=== PATIENT | male | born 1990 | race Caucasian/White ===

== ENCOUNTER 2020-04-09 16:46 | Emergency (ER) | payer MEDICARE, MEDICAID, SELFPAY ==
[2020-04-09 16:50] VITALS: BP 140/80; PULSE 108; RESP 20; TEMP 36.6; O2SAT 97
--- NOTE | 2020-04-09 16:56 | W.ED.GENAD ---
Discharge Plan Disposition Patient Disposition: [facility] Condition: Poor Discharge Details Chief Complaint: Abd Prob Clinical Impression: Acute cholangitis Primary Care Provider: Bradley Ulloa ED Provider: Ernestina Durbin Home Meds and New Rx's Prescriptions: No Action ibuprofen 600 MG tablet 600 mg PO TID Qty: 30 RF: 0 Medical Decision Making Patient is a pleasant 29-year-old male, accompanied by his mother, with chief complaint of right-sided abdominal pain. Patient has history of autism and mother is of comfort and aids in communication. Per their report, patient began having right-sided abdominal pain 2 weeks ago prompted by fatty meal intake. He reports severe pain after these meals. Mother has been treating for gastritis with minimal improvement. They report that last , the patient had one episode of emesis but patient states that this is prompted severe pain rather than abdominal upset. They deny any fevers or chills. Denies any chest pain or shortness of breath. He denies any change in bowel habits, last bowel movement was 2 hours prior to arrival. Denies any blood in stool. No hematemesis. Has had what sounds to be a superficial cyst removed from the abdominal wall but no further abdominal surgeries. He denies any testicular pain. No dysuria or hematuria. States the pain does radiate towards the right flank but is not back. States that 1 hour prior to arrival he had an egg salad sandwich prior to recurrence of his severe pain and mother to bring him in for evaluation. On exam, patient appears uncomfortable. He is overweight. Lungs are clear, normal cardiac exam. No CVA tenderness. Abdomen significant for pain in the epigastric and right upper quadrant region with positive Mata sign. Patient does have positive rebound tenderness. He does have pain as well in the right lower quadrant but this does not seem to be as severe, no pain over McBurney's point. Primarily concern for gallbladder disease. Also considered gastritis or ulcer, atypical presentation of appendicitis, pyelonephritis versus other. Plan for CT imaging and laboratory evaluation. Patient is returned from CT. Has 3 areas of itching that is concerning for hives. No shortness of breath or difficulty breathing. Will give IV benadryl and monitor closely. FINDINGS: Heart: The visualized portions of the heart and pericardium are within normal limits. Lungs: The visualized lung bases are within normal limits. There are slight dependent atelectatic changes at the lung bases. Liver: The liver is within normal limits. Gallbladder and bile ducts: There is intrahepatic and extrahepatic biliary ductal dilatation. The common bile duct is dilated into the head of the pancreas. It measured approximately a cm. The gallbladder is somewhat distended. There is thickening of the gallbladder wall. A tiny amount of pericholecystic fluid is not totally excluded. Pancreas: The pancreas is within normal limits. Spleen: The spleen is within normal limits. There is a splenule. Adrenals: The adrenal glands are unremarkable. Kidneys and ureters: The kidneys are within normal limits. Stomach and bowel: There is a somewhat distended loop of jejunum. Appendix: The appendix is visualized and is within normal limits. Intraperitoneal space: There is a small amount of free fluid in the pelvis. Clinical correlation isrecommended Vasculature: Unremarkable. No abdominal aortic aneurysm. Lymph nodes: No enlarged lymph nodes. Bladder: The urinary bladder is unremarkable. Reproductive: The prostate and seminal vesicles are within normal limits. Bones/joints: There are slight degenerative changes of both hips. There are slight degenerative changes of the lower thoracic spine . Soft tissues: Unremarkable. IMPRESSION: 1. Slightly distended gallbladder. The gallbladder wall is thickened. A tiny amount of pericholecystic fluid is not totally excluded. These findings could be re-evaluated with an abdominal ultrasound. 2. There is intrahepatic and extrahepatic biliary ductal dilatation. 3. Small amount of free fluid in the pelvis. Clinical correlation is recommended. Somewhat distended loop of jejunum. Clinical correlation is recommended. Labs reviewed. No leukocytosis. Patient does have a bump in his bilirubin to 7.2, AST 183, ALT 337, alk phos 200. Patient is typically within normal limits. Lipase is normal. Urine is pending. Patient continues to be uncomfortable, we will augment the morphine with Dilaudid. Consulted with general surgery regarding concern for ascending cholangitis with CT and laboratory findings. She advised patient will likely need ERCP and she be sent to [facility]. Contacted [facility] transfer center. They asked that I call back in 15 minutes. Discussed results with patient and mother. While waiting for [facility], plan start patient on Zosyn. He has been made n.p.o. while here but did eat 1 hour prior to arrival. Consult requested through [facility]. Images pushed to [facility] attn Dr Bazzi. GI advised patient appropriate for surgery tomorrow. Spoke with hospital medicine, Dr. Warren who is the accepting physician. Patient, mother and I discussed pathology and transfer at length. They voice udnerstanding and wish to proceed. Patient transferred to [facility], stable and comfortable for ascending cholangitis. HPI General Mode of arrival: ambulatory. Date/Time Provider Initiated Documentation: 04/09/20 16:56. Limitations to Documentation: no limitations. Information obtained by: patient, family (patient is autistic, mother helping with clarification and history) and RN notes reviewed. History of Present Illness 29 year old M presents to the emergency department with the chief complaint of right sided abdominal pain, described as severe, with intensity rated at 10. Quality is described as sharp, and is localized to the abdomen. Patient reports radiation to back (toward right flank). Patient started experiencing this week(s) (2) and it has been intermittent (worse after eating, constant since eating 1 hour ago). No relieving factors improve symptom(s), Eating worsens symptoms . Patient notes loss of appetite and nausea/vomiting (states 5 days ago severe pain caused emesis); denies chest pain, cough, fever/chills, rash, shortness of breath and weakness. Patient did receive the following treatments prior to arrival, other Related Data Home Medications Medication Instructions Recorded Confirmed ibuprofen 600 mg PO TID #30 tab 08/07/15 04/09/20 Previous Rx's Medication Instructions Recorded ibuprofen 600 mg PO TID #30 tab 08/07/15 Allergies Allergy/AdvReac Type Severity Reaction Status Date / Time No Known Allergies Allergy Unverified 04/09/20 16:55 Review of Systems Constitutional Constitutional: Reports as per HPI, Denies chills, Denies fatigue, Denies fever(s) and Denies headache(s) ENT Ears, Nose, Mouth, and Throat: Denies headache(s) Cardiovascular Cardiovascular: Reports as per HPI, Denies chest pain and Denies dyspnea Respiratory Respiratory: Reports as per HPI, Denies cough and Denies dyspnea Gastrointestinal Gastrointestinal: Reports as per HPI, Reports abdominal pain, Denies change in bowel habits (normal BM 2 hours prior to arrifval), Reports nausea (none at this time) and Reports vomiting (1 week ago, associated with severe pain) Genitourinary Genitourinary: Denies system reviewed and no additional complaints, except as documented (patient denies any change in urinary habits) Musculoskeletal Musculoskeletal: Reports as per HPI and Denies back pain Integumentary/Breasts Skin/Breast: Reports as per HPI and Denies rash Neurologic Neurologic: Reports as per HPI and Denies headache(s) Endocrine Endocrine: Denies fatigue [facility] Social History Smoking/Tobacco Use Status: Never Alcohol Intake: never Drug use: Never Substance use type: does not use Do you feel safe at home: Yes Do you feel safe in your relationship?: Yes Exam Const General: cooperative, uncomfortable, no acute distress and well developed Nutritional Appearance: well nourished and obese morbidly obese Orientation: alert, awake and oriented x3 HENMT Head: normal to inspection Mouth: moist mucous membranes Resp Effort & Inspection: normal respiratory effort, able to speak in complete sentences and no respiratory distress Auscultation: clear to auscultation bilaterally, no rales, no rhonchi and no wheezes Cardio Rate: regular rate Rhythm: regular rhythm Heart Sounds: S1 normal and S2 normal GI Inspection: no edema, non-distended, obesity, no visible herniation and no visible pulsation Palpation: soft, no hepatosplenomegaly, not firm, guarding in the RUQ, no hernias, no masses, not rigid, tender in the RLQ, in the RUQ, Mata's sign positive and with rebound tenderness; not at McBurney's point and No ascites Percussion: normal to percussion Auscultation: normal bowel sounds Back/Spine/Pelvis Back: no CVA tenderness Skin General skin exam: no rashes or lesions noted Trauma: no lacerations or abrasions Neuro General: patient alert and patient awake Cognition: normal cognition Speech: speech normal Gait: gait abnormal (unable to ambulate since fall) Psych Appearance: grossly normal and well kempt Mental Status: mental status grossly normal Speech and Movement: speech and movement normal
--- NOTE | 2020-04-09 17:00 | DI.CT_ITS ---
EXAM: CT ABDOMEN PELVIS W CLINICAL HISTORY: RUQ and right flank pain, worse after eating TECHNIQUE: Imaging Protocol: Axial computed tomography images with coronal and sagittal reformatted images were created and reviewed CONTRAST MATERIAL: Intravenous: Omnipaque 350 Contrast volume:100 mL Oral: No COMPARISON: CT ABD PELVIS WITH CONTRAST from 05/28/2011 FINDINGS: There is patient motion artifact. ABDOMEN: Lung Bases: There is dependent atelectasis in the lung bases bilaterally. Liver: Normal density. No measurable mass. Portal, Superior Mesenteric, and Splenic Veins: Unremarkable. Gallbladder and Biliary Tract: The gallbladder is mildly distended. The wall appears mildly thickene d. There is mild intra and extrahepatic biliary ductal dilatation. There does appear to be a small amount of pericholecystic fluid. Pancreas: Normal density, no abnormal calcifications or inflammatory process. Spleen: Normal. Adrenals: No masses seen. Kidneys: Normal size, contour and axis. No radiodense stones or obstructive uropathy. No masses seen. Abdominal Aorta: Abdominal portion non-dilated. Bowel: No obstruction or bowel wall thickening. Appendix is unremarkable. Nonspecific mild dilatation of a loop of jejunum. Peritoneal Cavity: Small amount of pelvic ascites. Lymph Nodes: Within normal limits. Bones: There is L5 spondylolysis and grade 1 spondylolisthesis of L5 on S1. Soft Tissues: Unremarkable. PELVIS: Bladder: Symmetric distention, no gross wall thickening. Reproductive Organs: Unremarkable as visualized. Lymph Nodes: Within normal limits. Bones: See above. IMPRESSION: 1. Gallbladder which is slightly distended with a mildly thickened gallbladder wall. Question of per icholecystic fluid. Acute cholecystitis cannot be excluded. Gallbladder ultrasound may be considere d for further evaluation. 2. Mild intrahepatic and extrahepatic biliary ductal dilatation. RADIATION DOSE DELIVERED: 1,596.31mGy.cm Total DLP DATA REPOSITORY: All CT scans at this facility are submitted to the National Radiology Data Registry (NRDR) Dose Index Registry (DIR) with the [employer] (A[employer]). RADIATION OPTIMIZATION: All CT scans at this facility use at least one of these dose optimization te chniques: automated exposure control; mA and/or kV adjustment per patient size (includes targeted exa ms where dose is matched to clinical indication); or iterative reconstruction.
[2020-04-09] MEDS: Lactated Ringers 1,000 ML 1000 ML IV (17:31)
[2020-04-09] MEDS: MORPHine 10 MG/ML VIAL 2 MG IVP (17:32)
[2020-04-09 17:42] LABS: Abs Immature Grans 0.01 k/cumm (0.0-0.09); Absolute Basophil Count 0.03 k/cumm (0.0-0.2); Absolute Eosinophil Count 0.16 k/cumm (0.0-0.7); Absolute Lymphocyte Count 1.17 k/cumm (1.2-3.4); Absolute Neutrophil Count 7.84 k/cumm (1.2-6.7); Basophils % 0.3; Eosinophils % 1.6; HCT 43.7 % (40.0-50.0); HGB 15.5 g/dL (13.5-17.5); Immature Grans % 0.1 %; Mean Corp. HGB Concentration 35.5 g/dL (32.0-36.0); Mean Corpuscular Hemoglobin 30.1 pg (27.0-33.0); Mean Corpuscular Volume 84.9 fL (80-95); Mean Platelet Volume 9.6 fL (8.0-11.0); Monocytes % 5.1; Neutrophils % 80.9; Platelet Count 272 x1000/uL (130-400); RBC 5.15 m/cumm (4.50-6.00); RBC Distribution Width 12.7 % (11.8-14.1); White Blood Cell Count 9.71 k/cumm (4.4-10.8)
[2020-04-09 17:51] LABS: ALT 337 U/L (16-63); AST 183 U/L (15-37); Alkaline Phosphatase 200 U/L (46-116); Anion Gap 9.7 mmol/L (3-11); BUN 12 mg/dL (7-18); CO2 27.3 mmol/L (21.0-32.0); CREATININE 0.92 mg/dL (0.70-1.30); Calcium 9.6 mg/dL (8.5-10.1); Chloride 99 mmol/L (98-107); Glucose 82 mg/dL (74-106); Lipase 61 U/L (73-393); Potassium 3.6 mmol/L (3.5-5.1); Sodium 136 mmol/L (136-145); Total Protein 7.9 g/dL (6.4-8.2)
[2020-04-09] MEDS: Normal Saline - Diluent 50 ML VIAL IV (17:53)
[2020-04-09] MEDS: Omnipaque 350 MG/ML 100 ML BTL IJ (17:53)
[2020-04-09 17:54] LABS: Bilirubin, Total 7.2 mg/dL (0.2-1.0)
--- NOTE | 2020-04-09 18:10 | DI.VRAD_ITS ---
PROCEDURE INFORMATION: Exam: CT Abdomen And Pelvis With Contrast Exam date and time: 04/09/2020 5:43 PM Age: 29 years old Clinical indication: Abdominal pain; Localized; Right upper quadrant (ruq); Patient HX: Ruq and right flank pain, worse after eating TECHNIQUE: Imaging protocol: Computed tomography of the abdomen and pelvis with intravenous contrast. COMPARISON: No relevant prior studies available. FINDINGS: Heart: The visualized portions of the heart and pericardium are within normal limits. Lungs: The visualized lung bases are within normal limits. There are slight dependent atelectatic changes at the lung bases. Liver: The liver is within normal limits. Gallbladder and bile ducts: There is intrahepatic and extrahepatic biliary ductal dilatation. The common bile duct is dilated into the head of the pancreas. It measured approximately a cm. The gallbladder is somewhat distended. There is thickening of the gallbladder wall. A tiny amount of pericholecystic fluid is not totally excluded. Pancreas: The pancreas is within normal limits. Spleen: The spleen is within normal limits. There is a splenule. Adrenals: The adrenal glands are unremarkable. Kidneys and ureters: The kidneys are within normal limits. Stomach and bowel: There is a somewhat distended loop of jejunum. Appendix: The appendix is visualized and is within normal limits. Intraperitoneal space: There is a small amount of free fluid in the pelvis. Clinical correlation is recommended. Vasculature: Unremarkable. No abdominal aortic aneurysm. Lymph nodes: No enlarged lymph nodes. Bladder: The urinary bladder is unremarkable. Reproductive: The prostate and seminal vesicles are within normal limits. Bones/joints: There are slight degenerative changes of both hips. There are slight degenerative changes of the lower thoracic spine . Soft tissues: Unremarkable. IMPRESSION: 1. Slightly distended gallbladder. The gallbladder wall is thickened. A tiny amount of pericholecystic fluid is not totally excluded. These findings could be re-evaluated with an abdominal ultrasound. 2. There is intrahepatic and extrahepatic biliary ductal dilatation. 3. Small amount of free fluid in the pelvis. Clinical correlation is recommended. Somewhat distended loop of jejunum. Clinical correlation is recommended. Dictated and Authenticated by: Austin Green MD. Ordering:MATHEUS Do MD
[2020-04-09] MEDS: diphenhydrAMINE 50 MG/ML VIAL IVP (18:27)
[2020-04-09] MEDS: Normal Saline Flush 10 ML SYR IVP (18:28)
[2020-04-09] MEDS: HYDROmorphone 2 MG/ML VIAL 1 MG IVP ×2 (18:28→22:24)
[2020-04-09 18:48] LABS: Prothrombin Time 10.1 sec (9.3-11.0)
[2020-04-09] MEDS: PIPERACILLIN/TAZO 3.375 GM in Normal Saline 50 ML IVPB (19:11)
[2020-04-09 19:16] VITALS: BP 111/56; PULSE 76; RESP 18; TEMP 36.8; O2SAT 97
[2020-04-09] MEDS: Lactated Ringers 1,000 ML 200 ML IV (19:41)
[2020-04-09 21:40] VITALS: BP 101/62; PULSE 74; RESP 16; TEMP 36.6; O2SAT 100
== END 2020-04-09 22:20 | disposition short-term general hospital (02) ==
PROVIDERS: Emergency Provider Physician Assistant; PCP Pediatrics
DX: K83.09 Other cholangitis (principal); R10.821 Right upper quadrant rebound abdominal tenderness; F84.0 Autistic disorder
CPT/HCPCS: 36415; 80053; 83690; 96361; 96365; 96375; 96376; 99285; 74177; 81003; 85025; 85610; 85730; 99284; J1200; J2270; J2543; J3490

== ENCOUNTER 2021-01-22 17:38 | Outpatient (REF) | payer MEDICARE, MEDICAID, SELFPAY ==
[2021-01-22 14:18] LABS: Calculated LDL 109 mg/dL (<100); Cholesterol 185 mg/dL (<200); Glucose 80 mg/dL (74-106); HDL Cholesterol 49 mg/dL (40-60); Triglyceride 135 mg/dL (<150)
== END 2021-01-22 17:39 | disposition home or self-care (01) ==
LOC: NCHCN 17:38
PROVIDERS: Visit Provider Family Medicine
DX: E66.9 Obesity, unspecified (principal); Z13.1 Encounter for screening for diabetes mellitus
CPT/HCPCS: 80061; 82947

== ENCOUNTER 2021-01-25 04:32 | Outpatient (CLI) | payer OTHER, SELFPAY ==
--- NOTE | 2021-01-25 07:00 | DI.RAD_ITS ---
EXAM: XR HAND LT COMPLETE CLINICAL HISTORY: Question of OA/RA or other pathology,BILTA HAND AND WRIST PAIN,M25.532,M25.. TECHNIQUE: 2D digital imaging was performed. COMPARISON: No exams were available for comparison FINDINGS: BONES: No acute fracture is present. No bony destructive lesion is seen. JOINTS: No dislocation present. The joint spaces are well maintained. No erosions, soft tissue calci fications or joint space narrowing is present. SOFT TISSUE: Normal. IMPRESSION: Unremarkable radiographs of the left hand. DATA REPOSITORY: RADIATION DOSE DELIVERED:
--- NOTE | 2021-01-25 07:09 | DI.RAD_ITS ---
EXAM: XR HAND RT COMPLETE CLINICAL HISTORY: Question of OA/RA or other pathology,BILAT WRIST AND HAND PAIN. TECHNIQUE: 2D digital imaging was performed. COMPARISON: No exams were available for comparison FINDINGS: BONES: No acute fracture is present. No bony destructive lesion is seen. JOINTS: No dislocation present. No erosions, joint space narrowing or soft tissue calcifications are present. SOFT TISSUE: Normal. IMPRESSION: Unremarkable radiographs of the right hand. DATA REPOSITORY: RADIATION DOSE DELIVERED:
== END 2021-01-25 04:52 ==
PROVIDERS: PCP Family Medicine; Visit Provider Nurse Practitioner Family
DX: M25.531 Pain in right wrist (principal); M25.532 Pain in left wrist; M79.641 Pain in right hand; M79.642 Pain in left hand
CPT/HCPCS: 73130

== ENCOUNTER 2021-01-28 04:21 | Outpatient (CLI) | payer OTHER, SELFPAY ==
[2021-01-28 12:10] LABS: Abs Immature Grans 0.03 10^3/uL (0.0-0.06); Absolute Basophil Count 0.04 10^3/uL (0.0-0.2); Absolute Monocyte Count 0.41 10^3/uL (0.1-0.8); Absolute Neutrophil Count 5.27 10^3/uL (1.2-6.7); Basophils % 0.5; Eosinophils % 2.5; HCT 43.6 % (40.0-50.0); HGB 14.8 g/dL (13.5-17.5); Immature Grans % 0.4; Lymphocytes % 24.2; MCH 29.7 pg (27.0-33.0); MCHC 33.9 % (32.0-36.0); MCV 87.4 fL (80-95); MPV 9.4 fL (8.0-11.0); Monocytes % 5.2; Neutrophils % 67.2; Nucleated RBC 0 %; Platelet Count 251 10^3/uL (130-400); RBC 4.99 10^6/uL (4.36-5.78); RDW 12.6 % (11.8-14.1); RDW-SD 40.1 fL; WBC 7.85 10^3/uL (4.4-10.8)
[2021-01-28 13:48] LABS: C-Reactive Protein 0.29 mg/dL (0.0-0.3); Uric Acid 5.9 mg/dL (3.5-7.2)
[2021-01-28 16:25] LABS: Rheumatoid Factor <8.6 IU/mL (<12.0)
[2021-01-28 16:54] LABS: ESR 12 mm/hr (<or=15)
[2021-01-29 15:17] LABS: ANA Interpretation Negative (Negative)
[2021-02-04 09:49] LABS: Cyclic Citrullinated Peptide <2.5 U/mL (<5.0)
== END 2021-01-28 04:22 | disposition home or self-care (01) ==
LOC: LBO 04:21
PROVIDERS: PCP Family Medicine; Visit Provider Nurse Practitioner Family
DX: M25.531 Pain in right wrist (principal); M25.532 Pain in left wrist; M79.641 Pain in right hand; M79.642 Pain in left hand
CPT/HCPCS: 36415; 85652; 86200; 84550; 85025; 86038; 86140; 86431

== ENCOUNTER 2021-03-04 11:44 | Outpatient (CLI) | payer OTHER, SELFPAY ==
--- NOTE | 2021-03-04 11:00 | DI.RAD_ITS ---
EXAM: XR CERVICAL SPINE COMP 4-5V CLINICAL HISTORY: cervical radiculopathy?. TECHNIQUE: 2D digital imaging was performed. COMPARISON: No exams were available for comparison FINDINGS: There is no evidence of fracture or listhesis nor offset of the spinal laminar line. Disc spaces exh ibit normal height at each level. No foraminal narrowing seen on the oblique views. No cervical rib s. No osseous lesions. Bone density is age-appropriate. IMPRESSION: No significant radiographic findings. DATA REPOSITORY: RADIATION DOSE DELIVERED:
== END 2021-03-04 11:45 | disposition home or self-care (01) ==
LOC: DIORS 11:45
PROVIDERS: PCP Family Medicine; Referring Provider Family Medicine; Visit Provider Physician Assistant Surgical
DX: M54.12 Radiculopathy, cervical region (principal); M25.531 Pain in right wrist; M25.532 Pain in left wrist; M79.641 Pain in right hand; M79.642 Pain in left hand
CPT/HCPCS: 72050

== ENCOUNTER 2021-05-15 08:05 | Day surgery (SDC) | payer OTHER, SELFPAY ==
--- NOTE | 2021-05-15 07:26 | W.PM.DSUDISC ---
Documented by User: RUBÉN Jara 05/15/21 07:28 Discharge Plan Disposition Patient Disposition: HOME Condition: Good Discharge Details Reason For Visit: Right ECTR Attending Provider: Michael Henderson Primary Care Provider: Sherwin Gallegos Home Meds and New Rx's Prescriptions: New acetaminophen 500 mg tablet 500 mg PO Q6H PRN PRN (Reason: pain) Qty: 40 RF: 3 hydrocodone-acetaminophen 5-325 mg tablet 1 tab PO Q6H PRN (Reason: pain) Qty: 6 RF: 0 Continued ibuprofen 600 MG tablet 600 mg PO TID Qty: 30 RF: 0 Discharge Instructions Additional Instructions: Cubital Tunnel Decompression Discharge Instructions Activity: You should stay in the sling for the first 2 weeks. You may come out of the sling for gentle motion and hygiene but should largely remain in the sling to allow the incision site to heal. Gentle motion of the elbow, hand, wrist, and fingers is okay and encouraged after the first few days, but no repetitive activites nor heavy lifting. You may apply ice. Medications: - You should take Tylenol and Ibuprofen around the clock. - You have been prescribed Hydrocodone for breakthrough pain. Dressings: - The initial surgical dressing should stay in place for 3 days. It may then be removed and kept clean and dry. You should cover with a light gauze dressing. - You may shower after 3 days and get the wound wet. Follow-up: 10 days Stand Alone Forms: Anesthesia Discharge Inst. Referrals: Michael Henderson MD [ [facility] STAFF PHYSICIAN] - 05/24/21 11:00 am () Activity:: Activity as Tolerated Remove Dressings/Wound Care:: 72 hours Shower/Bathe:: 72 hours Diet:: As Tolerated Discharge Orders Discharge Orders: Discharge Order (Routine); Ordered 05/15/21 Ordered By: Ellen Pritchard Discharge Data Discharge Date/Time-TO BE ENTERED AT DEPARTURE: 05/15/21 11:55 DS: Diagnosis Discharge Diagnosis (1) Right carpal tunnel syndrome: Status: Suspected Documented by User: Michael Henderson MD 05/15/21 12:14 Discharge Plan Disposition Patient Disposition: HOME Condition: Good Discharge Details Reason For Visit: Right ECTR Attending Provider: Michael Henderson Primary Care Provider: Sherwin Gallegos Home Meds and New Rx's Prescriptions: New acetaminophen 500 mg tablet 500 mg PO Q6H PRN PRN (Reason: pain) Qty: 40 RF: 3 hydrocodone-acetaminophen 5-325 mg tablet 1 tab PO Q6H PRN (Reason: pain) Qty: 6 RF: 0 Continued ibuprofen 600 MG tablet 600 mg PO TID Qty: 30 RF: 0 Discharge Instructions Additional Instructions: Cubital Tunnel Decompression Discharge Instructions Activity: You should stay in the sling for the first 2 weeks. You may come out of the sling for gentle motion and hygiene but should largely remain in the sling to allow the incision site to heal. Gentle motion of the elbow, hand, wrist, and fingers is okay and encouraged after the first few days, but no repetitive activites nor heavy lifting. You may apply ice. Medications: - You should take Tylenol and Ibuprofen around the clock. - You have been prescribed Hydrocodone for breakthrough pain. Dressings: - The initial surgical dressing should stay in place for 3 days. It may then be removed and kept clean and dry. You should cover with a light gauze dressing. - You may shower after 3 days and get the wound wet. Follow-up: 10 days Stand Alone Forms: Anesthesia Discharge Inst. Referrals: Michael Henderson MD [ [facility] STAFF PHYSICIAN] - 05/24/21 11:00 am () Activity:: Activity as Tolerated Remove Dressings/Wound Care:: 72 hours Shower/Bathe:: 72 hours Diet:: As Tolerated Discharge Orders Discharge Orders: Discharge Order (Routine); Ordered 05/15/21 Ordered By: Ellen Pritchard Discharge Data Discharge Date/Time-TO BE ENTERED AT DEPARTURE: 05/15/21 11:55
[2021-05-15 08:26] VITALS: BP 104/73; PULSE 62; RESP 18; TEMP 36.8; O2SAT 97
[2021-05-15] MEDS: Lactated Ringers 1,000 ML 80 ML IV (08:50)
--- NOTE | 2021-05-15 08:52 | W.ANESPRE ---
General Info Date of Service Date Performed: 05/15/21 Height: 5 ft 10 in Weight: 119.9 kg Body Mass Index (BMI): 37.9 Surgical Procedure: Operation Date: 05/15/21 09:55 Proposed Procedures Side Surgeon p Wrist ECTR Right Michael Henderson MD Meds Allergies and Home Medications Allergies Allergy/AdvReac Type Severity Reaction Status Date / Time No Known Allergies Allergy Verified 05/15/21 08:23 Home Medication Medication Instructions Recorded ibuprofen 600 mg PO TID #30 tab 08/07/15 Current Visit Medications: Current Medications Generic Name Dose Route Start Last Admin Trade Name Freq PRN Reason Stop Dose Admin Acetaminophen 650 mg 05/15/21 07:25 Acetaminophen 325 Mg Tab PO Q4H PRN PRN Hydrocodone Bitart/Acetaminophen 0 tab 05/15/21 07:25 Hydrocodone 5/Acetaminophen 325 Tab PO Q3H PRN PRN Pain Ringer's Solution 1,000 mls @ 80 mls/hr 05/15/21 06:00 IV 06/13/21 23:59 INFUSION AL Cefazolin Sodium 3,000 mg/ 100 mls @ 200 mls/hr 05/15/21 06:00 Sodium Chloride IVPB 05/15/21 16:00 PREOP AL Ondansetron HCl 4 mg/ Sodium 52 mls @ 200 mls/hr 05/15/21 07:25 Chloride IVPB Q6H PRN PRN IV Miscellaneous Supplies 1 each 05/15/21 06:00 Iv Access IV 06/13/21 23:59 DIRECTED AL Sodium Chloride 0 ml 05/15/21 06:00 Normal Saline Flush 10 Ml Syr IV 06/13/21 23:59 PRN PRN Sodium Chloride 0 ml 05/15/21 06:00 Normal Saline 10 Ml Vial IJ 06/13/21 23:59 DIRECTED PRN Sterile Water 0 ml 05/15/21 06:00 Water,Injection,Sterile 10 Ml Vial IJ 06/13/21 23:59 DIRECTED PRN PFSH Active Problems Active Problems: Problem Status Onset Code Bilateral wrist pain M25.531, M25.532 Autism F84.0 Bilateral hand pain M79.641, M79.642 SLAP lesion of right shoulder S43.431A Tendinitis of long head of biceps brachii of right shoulder M75.21 Internal derangement of right shoulder M24.811 Weakness of both upper extremities R29.898 Medical History Medical History (Updated 05/15/21 @ 08:22 by Jillian Hartmann) Hx of abdominal abscess umbilical Left carpal tunnel syndrome Right carpal tunnel syndrome Surgical History Surgical History (Updated 05/15/21 @ 08:22 by Jillian Hartmann) Hx of adenoidectomy Hx of cholecystectomy Hx of tonsillectomy Tobacco Smoking/Tobacco Use Status: Never Alcohol Alcohol Intake: never Substance Use Substance use: Never Substance use type: does not use Vital Signs and Lab Results Vital Signs Most Recent Vital Signs in EMR: Most Recent Vital Signs Temp Pulse Resp BP Pulse Ox 36.8 C 62 18 104/73 97 05/15/21 08:26 05/15/21 08:26 05/15/21 08:26 05/15/21 08:26 05/15/21 08:26 Lab Results Blood Type / Crossmatch: No Data to Display Complete Blood Count: No Data to Display Complete Metabolic Panel: No Data to Display Liver Function Panel: No Data to Display Coagulation Panel: No Data to Display Cardiac Panel: No Data to Display Arterial Blood Gas: No Data to Display Venous Blood Gas: No Data to Display Pancreas Panel: No Data to Display Thyroid Panel: No Data to Display Infectious Disease: No Data to Display Blood Cultures: No Data to Display Toxicology Panel: No Data to Display Anesthesia Assessment and Plan Anesthesia History Personal History: No History of Anesthesia Complications Family History: No Family History of Anesthesia Complications Exercise Tolerance Exercise Tolerance: Metabolic Equivalents>4 Pertinent Negatives Pertinent Negatives: No Symptoms of GERD, No Major Cardiovascular Symptoms or Complaints, No Major Pulmonary Symptoms or Complaints and No History of CVA/TIA Cardiac & Pulmonary Exam Cardiac Exam: Normal S1/S2 Heart Sounds Pulmonary Exam: Clear Bilateral Breath Sounds Airway Exam Known Difficult Airway: No Mallampati Class: 2 Mouth Opening: Normal (> 3cm) Thyromental Distance: Greater than 3 cm Facial Hair: Full Akers Neck Range of Motion: Full ROM Neck Circumference: Thick Teeth Condition: Normal Dentition ASA Classification ASA Score: ASA 2 Emergency Case?: No NPO Status NPO Status: NPO Clears >2 hours, Solids >8 hours Anesthesia Plan Resuscitation Status: Full Code Anesthesia Technique: General Anesthesia Airway Planned: Natural Airway Monitors Used: Standard Monitors
[2021-05-15 08:54] VITALS: BMI 37.9
[2021-05-15] MEDS: ceFAZolin 3,000 MG in Normal Saline 100 ML 200 MG IVPB (09:10)
[2021-05-15] MEDS: Sodium Bicarbonate 50 MEQ/50 ML VIAL (09:16)
[2021-05-15 09:39] VITALS: BP 96/62; PULSE 63; RESP 15; TEMP 36.4; O2SAT 97
--- NOTE | 2021-05-15 09:42 | W.ANESPOSTOP ---
Postoperative Evaluation Date, Time and Location Date Performed: 05/15/21 Time Performed: 09:42 Patient Location: Day Surgery Unit Vital Signs Most Recent Imported Vital Signs: Most Recent Vital Signs Temp Pulse Resp BP Pulse Ox 36.8 C 62 18 104/73 97 05/15/21 08:26 05/15/21 08:26 05/15/21 08:26 05/15/21 08:26 05/15/21 08:26 Most Recent Manually Entered Vital Signs: Adult Blood Pressure: 96/62 Heart Rate: 62 Respirations: 10 Oxygen Saturation (%): 96 Temperature (C): 36.6 C Pain Score (0-10 Scale): 0 Pain Score Most Recent Pain Score: Most Recent Pain Score Pain Level 0 05/15/21 08:26 Assessment Mental Status: Awake (Alert & Oriented to Patient Baseline) Airway and Respiratory Function: Patent airway with normal (patient baseline) respiratory exam Cardiovascular Function: Hemodynamically Stable Hydration Status: Adequately Hydrated Nausea & Vomiting: No Nausea or Vomiting Pain: Pt. Denies Any Pain Peripheral Nerve Block: Patient did not receive a nerve block
[2021-05-15 09:43] VITALS: BP 96/62; PULSE 62; RESP 10; TEMPC 36.6; O2SAT 96
[2021-05-15 10:10] VITALS: BP 106/75; PULSE 60; RESP 17; TEMP 36.8; O2SAT 96
--- NOTE | 2021-05-15 10:41 | ROE_ITS ---
Date of service: 05/15/21 Time of Service: 09:58 Operative Note Operative Note DATE OF PROCEDURE: 05/15/21 PRE-OP DIAGNOSIS: Right Carpal Tunnel Syndrome POST-OP DIAGNOSIS: same PROCEDURE: Right Endoscopic Carpal Tunnel Release SURGEON: Michael Henderson ANESTHESIA TYPE: General:No Airway Refer to Anesthesia Record ESTIMATED BLOOD LOSS: 0 PATHOLOGY: none sent TOURNIQUET TIME: 6 COMPLICATIONS: None Patient was transported to: same day Patient's condition: stable Indications: I have seen Josue in clinic for symptoms of carpal tunnel syndrome. The numbness, tingling, and pain limited function. Clinical exam findings suggested the diagnosis of carpal tunnel syndrome. Nonoperative measures such as bracing, time, activity modifications had been tried but disability and pain persisted. His constellation of symptoms were difficult to attribute to any one pathology but the carpal tunnel seemed to be responsible fo r a large portion of the symptoms, so I offered a carpal tunnel release. I discussed carpal tunnel release with the patient. I reviewed the risks of the procedure to include, but not limited to, bleeding, infection, pain, stiffness, incomplete release, damage to nerves or vessels, persistent numbness, recurrence. Despite these risks, Josue elected to proceed. Findings: There was tightened carpal tunnel. This was dilated and released successfully with the endoscopic with increased space within the tunnel. The volar fascia was thick and had two layers. The antebrachial fascia was released proximally freeing the median nerve at the wrist. Procedure Description: Josue was greeted in the preoperative holding area where the correct side was identified and marked. The consent was reviewed with the patient and signed. The history and physical was updated. All questions were answered. He was taken back to the operating room. The patient was placed into the supine position on the operating room table with the right arm on an arm board. A nonsterile tourniquet was placed high onto the arm. All bony prominences were well padded. Prophylactic antibiotics in the form of Cefazolin were administered. The right arm was then prepped with Chloraprep and draped in a standard fashion with stockinette and extremity drape. A timeout to confirm correct identity, side and site, procedure, allergies, anesthesia, and medical concerns was performed. The surgical site was marked in the volar wrist creases in line with the radial border of the fourth ray. This area was anesthetized with approximately 6cc of 1% Lidocaine. The limb was then exsanguinated with an Esmarch. The skin was i ncised with a 15 blade, approximately 1cm. The skin only was cut and the deeper tissue was dissected bluntly with a tenotomy scissor, avoiding passing nerve and venous structures. The fascia was penetrated and opened bluntly. This volar fascia appeared to have two layers to it, with the second layer quite deep. Once this was opened the normal volara contents were seen. Then, a two-prong skin hook was placed under this proximal fascial edge. A series of hamate finders were used to identify and dilate the carpal tunnel. Synovial elevator was used to free synovial attachments to the underside of the transverse carpal ligament. My thumb was kept in the palm to ismael the distal extent of the carpal tunnel and correctly position the hand. The Microaire endoscope was inserted without difficulty and without resistance. Excellent visualization showed horizontally running fibers of the transverse carpal ligament (TCL). The distal extent of the TCL was visualized and the end of the scope palpated with the thumb. The blade was elevated and withdrawn from distal to proximal. The TCL was split into two flaps. The endoscope was reinserted to confirm complete release and any remnant ligament was incised. The scope was withdrawn and the proximal aspect of the carpal tunnel was grossly inspected and appeared release with the median nerve visible. The antebrachial fascia at the level of the wrist was then freed from the overlying skin and then the underlying median nerve with blunt dissection. This was transected longitudinally for about 3cm proximal to the wrist incision. The wound was then irrigated with easy flow of irrigant distally and proximally. The incision was closed with a single 4-0 Nylon suture. The wound was dressed with Xeroform, Gauze, Kerlix and Kit. The tourniquet was deflated with the initial dressing and held with some pressure. Blood flow returned easily to all digits with capillary refill less than 2 seconds. The patient tolerated the procedure well and was returned to the Same Day Surgery area in a stable condition suffering no known complication.
[2021-05-15] MEDS: HYDROcodone 5/Acetaminophen 325 TAB PO (11:18)
[2021-05-15 11:20] VITALS: BP 101/69; PULSE 57; RESP 20; TEMP 36.7; O2SAT 96
[2021-05-15 11:50] VITALS: BP 106/74; PULSE 59; RESP 18; TEMP 36.5; O2SAT 96
== END 2021-05-15 11:55 | disposition home or self-care (01) ==
LOC: SUR 08:06
PROVIDERS: PCP Family Medicine; Visit Provider Student in an Organized Health Care Education/Training Program
PROC: 01N54ZZ Release Median Nerve, Percutaneous Endoscopic Approach (ICD-10-PCS; CPT 29848; principal; 2021-05-15 09:45)
DX: G56.03 Carpal tunnel syndrome, bilateral upper limbs (principal); F84.0 Autistic disorder
CPT/HCPCS: 29848; J0690; J1100; J1885; J2001; J2405

== ENCOUNTER 2021-06-04 10:04 | Day surgery (SDC) | payer OTHER, SELFPAY ==
--- NOTE | 2021-06-04 07:41 | W.PM.DSUDISC ---
Documented by User: RUBÉN Jara 06/04/21 07:44 Discharge Plan Disposition Patient Disposition: HOME Condition: Good Discharge Details Reason For Visit: Left ECTR Attending Provider: Michael Henderson Primary Care Provider: Sherwin Gallegos Home Meds and New Rx's Prescriptions: New hydrocodone-acetaminophen 5-325 mg tablet 1 tab PO Q6H PRNQty: 5 RF: 0 Continued ibuprofen 600 MG tablet 600 mg PO TID Qty: 30 RF: 0 acetaminophen 500 mg tablet 500 mg PO Q6H PRN PRN (Reason: pain) Qty: 40 RF: 3 Discharge Instructions Stand Alone Forms: [place] C. Tunnel Release Referrals: Michael Henderson MD [ [facility]] - Activity:: Activity as Tolerated Remove Dressings/Wound Care:: 72 hours Shower/Bathe:: 72 hours Diet:: As Tolerated Discharge Orders Discharge Orders: Discharge Order (Routine); Ordered 06/04/21 Ordered By: Ellen Pritchard DS: Diagnosis Discharge Diagnosis (1) Left carpal tunnel syndrome: Status: Suspected Documented by User: Michael Henderson MD 06/04/21 12:39 Discharge Plan Disposition Patient Disposition: HOME Condition: Good Discharge Details Reason For Visit: Left ECTR Attending Provider: Michael Henderson Primary Care Provider: Sherwin Gallegos Home Meds and New Rx's Prescriptions: New hydrocodone-acetaminophen 5-325 mg tablet 1 tab PO Q6H PRNQty: 5 RF: 0 Continued ibuprofen 600 MG tablet 600 mg PO TID Qty: 30 RF: 0 acetaminophen 500 mg tablet 500 mg PO Q6H PRN PRN (Reason: pain) Qty: 40 RF: 3 Discharge Instructions Stand Alone Forms: [place] C. Tunnel Release Referrals: Michael Henderson MD [ [facility]] - Activity:: Activity as Tolerated Remove Dressings/Wound Care:: 72 hours Shower/Bathe:: 72 hours Diet:: As Tolerated Discharge Orders Discharge Orders: Discharge Order (Routine); Ordered 06/04/21 Ordered By: Ellen Pritchard
[2021-06-04 10:19] VITALS: BP 116/56; PULSE 63; RESP 20; TEMP 36; O2SAT 97
--- NOTE | 2021-06-04 10:48 | W.ANESPRE ---
General Info Date of Service Date Performed: 06/04/21 Height: 5 ft 10 in Weight: 119.9 kg Body Mass Index (BMI): 37.9 Surgical Procedure: Operation Date: 06/04/21 12:10 Proposed Procedures Side Surgeon p Wrist ECTR Left Michael Henderson MD Meds Allergies and Home Medications Allergies Allergy/AdvReac Type Severity Reaction Status Date / Time No Known Allergies Allergy Verified 06/03/21 09:59 Home Medication Medication Instructions Recorded acetaminophen 500 mg PO Q6H PRN PRN #40 tab 05/15/21 ibuprofen 600 mg PO TID #30 tab 05/15/21 hydrocodone-acetaminophen 1 tab PO Q6H PRN #5 tab 06/04/21 Current Visit Medications: Current Medications Generic Name Dose Route Start Last Admin Trade Name Freq PRN Reason Stop Dose Admin Acetaminophen 650 mg 06/04/21 07:40 Acetaminophen 325 Mg Tab PO Q4H PRN PRN Hydrocodone Bitart/Acetaminophen 0 tab 06/04/21 07:40 Hydrocodone 5/Acetaminophen 325 Tab PO Q3H PRN PRN Pain Ringer's Solution 1,000 mls @ 80 mls/hr 06/04/21 06:00 IV 07/03/21 23:59 INFUSION AL Cefazolin Sodium 3,000 mg/ 100 mls @ 200 mls/hr 06/04/21 06:00 Sodium Chloride IVPB 06/04/21 16:00 PREOP AL Ondansetron HCl 4 mg/ Sodium 52 mls @ 200 mls/hr 06/04/21 07:40 Chloride IVPB Q6H PRN PRN IV Miscellaneous Supplies 1 each 06/04/21 06:00 Iv Access IV 07/03/21 23:59 DIRECTED AL Sodium Chloride 0 ml 06/04/21 06:00 Normal Saline Flush 10 Ml Syr IV 07/03/21 23:59 PRN PRN Sodium Chloride 0 ml 06/04/21 06:00 Normal Saline 10 Ml Vial IJ 07/03/21 23:59 DIRECTED PRN Sterile Water 0 ml 06/04/21 06:00 Water,Injection,Sterile 10 Ml Vial IJ 07/03/21 23:59 DIRECTED PRN PFSH Active Problems Active Problems: Problem Status Onset Code Bilateral wrist pain M25.531, M25.532 Autism F84.0 Bilateral hand pain M79.641, M79.642 SLAP lesion of right shoulder S43.431A Tendinitis of long head of biceps brachii of right shoulder M75.21 Internal derangement of right shoulder M24.811 Weakness of both upper extremities R29.898 Right carpal tunnel syndrome G56.01 Medical History Medical History Cellulitis of head except face (12/08/16) pustular lesions on scalp Cellulitis of leg (09/24/12) Hx of abdominal abscess umbilical Immune deficiency disorder (02/14/15) Recurrent skin infections. 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 [facility] – [place] eval by immunology,derm, ID Left carpal tunnel syndrome Surgical History Surgical History Hx of adenoidectomy Hx of cholecystectomy Hx of tonsillectomy Right carpal tunnel syndrome S/P ECTR: 05/15/2021 Tobacco Smoking/Tobacco Use Status: Never Alcohol Alcohol Intake: never Substance Use Substance use: Never Substance use type: does not use Vital Signs and Lab Results Vital Signs Most Recent Vital Signs in EMR: Most Recent Vital Signs Temp Pulse Resp BP Pulse Ox 36 C L 63 20 116/56 L 97 06/04/21 10:19 06/04/21 10:19 06/04/21 10:19 06/04/21 10:19 06/04/21 10:19 Lab Results Blood Type / Crossmatch: No Data to Display Complete Blood Count: No Data to Display Complete Metabolic Panel: No Data to Display Liver Function Panel: No Data to Display Coagulation Panel: No Data to Display Cardiac Panel: No Data to Display Arterial Blood Gas: No Data to Display Venous Blood Gas: No Data to Display Pancreas Panel: No Data to Display Thyroid Panel: No Data to Display Infectious Disease: No Data to Display Blood Cultures: No Data to Display Toxicology Panel: No Data to Display Anesthesia Assessment and Plan Anesthesia History Personal History: No History of Anesthesia Complications Family History: No Family History of Anesthesia Complications Exercise Tolerance Exercise Tolerance: Metabolic Equivalents>4 Pertinent Negatives Pertinent Negatives: No Symptoms of GERD, No Major Cardiovascular Symptoms or Complaints and No Major Pulmonary Symptoms or Complaints Cardiac & Pulmonary Exam Cardiac Exam: Normal S1/S2 Heart Sounds Pulmonary Exam: Clear Bilateral Breath Sounds Airway Exam Known Difficult Airway: No Mallampati Class: 2 Mouth Opening: Normal (> 3cm) Thyromental Distance: Greater than 3 cm Neck Range of Motion: Full ROM Neck Circumference: Thick Teeth Condition: Normal Dentition ASA Classification ASA Score: ASA 2 Emergency Case?: No NPO Status NPO Status: NPO Clears >2 hours, Solids >8 hours Anesthesia Plan Resuscitation Status: Full Code Anesthesia Technique: General Anesthesia Airway Planned: Natural Airway Monitors Used: Standard Monitors
[2021-06-04 10:54] VITALS: BMI 37.9
[2021-06-04] MEDS: Lactated Ringers 1,000 ML 80 ML IV (10:56)
[2021-06-04] MEDS: ceFAZolin 3,000 MG in Normal Saline 100 ML 200 MG IVPB (12:10)
[2021-06-04] MEDS: Sodium Bicarbonate 50 MEQ/50 ML VIAL (12:25)
[2021-06-04 12:48] VITALS: BP 114/62; PULSE 65; RESP 16; TEMP 36.1; O2SAT 97
--- NOTE | 2021-06-04 13:00 | W.ANESPOSTOP ---
Postoperative Evaluation Date, Time and Location Date Performed: 06/04/21 Time Performed: 13:00 Patient Location: Day Surgery Unit Vital Signs Most Recent Imported Vital Signs: Most Recent Vital Signs Temp Pulse Resp BP Pulse Ox 36.1 C L 65 16 114/62 97 06/04/21 12:48 06/04/21 12:48 06/04/21 12:48 06/04/21 12:48 06/04/21 12:48 Pain Score Most Recent Pain Score: Most Recent Pain Score Pain Level 0 06/04/21 12:48 Assessment Mental Status: Awake (Alert & Oriented to Patient Baseline) Airway and Respiratory Function: Patent airway with normal (patient baseline) respiratory exam Cardiovascular Function: Hemodynamically Stable Hydration Status: Adequately Hydrated Nausea & Vomiting: No Nausea or Vomiting Pain: Pt. Denies Any Pain Peripheral Nerve Block: Patient did not receive a nerve block
[2021-06-04 13:36] VITALS: BP 103/72; PULSE 53; RESP 16; TEMP 36.1; O2SAT 99
--- NOTE | 2021-06-04 15:14 | W.PM.OP ---
Date of service: 06/04/21 Time of Service: 12:30 Operative Note Operative Note DATE OF PROCEDURE: 06/04/21 PRE-OP DIAGNOSIS: Right Carpal Tunnel Syndrome POST-OP DIAGNOSIS: same PROCEDURE: Right Endoscopic Carpal Tunnel Release SURGEON: Michael Henderson ANESTHESIA TYPE: General:No Airway Refer to Anesthesia Record ESTIMATED BLOOD LOSS: 0 PATHOLOGY: none sent TOURNIQUET TIME: 9 COMPLICATIONS: None Patient was transported to: same day Patient's condition: stable Indications: I have seen Josue in clinic for symptoms of carpal tunnel syndrome. The numbness, tingling, and pain limited function. He previously underwent a successful right ECTR. Nonoperative measures such as bracing, time, activity modifications had been tried but disability and pain persisted. I discussed carpal tunnel release with the patient. I reviewed the risks of the procedure to include, but not limited to, bleeding, infection, pain, stiffness, incomplete release, damage to nerves or vessels, persistent numbness, recurrence. Despite these risks, the patient elected to proceed. Findings: There was tightened carpal tunnel. The volar fascia was notable thick an in multiple layers. The carpal tunnel was dilated and released successfully with the endoscopic with increased space within the tunnel. The antebrachial fascia was released proximally freeing the median nerve at the wrist. Procedure Description: Josue was greeted in the preoperative holding area where the correct side was identified and marked. The consent was reviewed with the patient and signed. The history and physical was updated. All questions were answered. He was taken back to the operating room. The patient was placed into the supine position on the operating room table with the right arm on an arm board. A nonsterile tourniquet was placed high onto the arm. All bony prominences were well padded. Prophylactic antibiotics in the form of Cefazolin were administered. The right arm was then prepped with Chloraprep and draped in a standard fashion with stockinette and extremity drape. A timeout to confirm correct identity, side and site, procedure, allergies, anesthesia, and medical concerns was performed. The surgical site was marked in the volar wrist creases in line with the radial border of the fourth ray. This area was anesthetized with approximately 6cc of 1% Lidocaine. The limb was then exsanguinated with an Esmarch. The skin was incised with a 15 blade, approximately 1cm. The skin only was cut and the deeper tissue was dissected bluntly with a tenotomy scissor, avoiding passing nerve and venous structures. The fascia was penetrated and opened bluntly. This fascia was multi-layered and quite thick. It took some time to get deep enough. A two-prong skin hook was placed under this proximal fascial edge. A series of hamate finders were used to identify and dilate the carpal tunnel. Synovial elevator was used to free synovial attachments to the underside of the transverse carpal ligament. My thumb was kept in the palm to ismael the distal extent of the carpal tunnel and correctly position the hand. The Microaire endoscope was inserted without difficulty and without resistance. Excellent visualization showed horizontally running fibers of the transverse carpal ligament (TCL). The distal extent of the TCL was visualized and the end of the scope palpated with the thumb. The blade was elevated and withdrawn from distal to proximal. The TCL was split into two flaps. The endoscope was reinserted to confirm complete release and any remnant ligament was incised. The scope was withdrawn and the proximal aspect of the carpal tunnel was grossly inspected and appeared release with the median nerve visible. The antebrachial fascia at the level of the wrist was then freed from the overlying skin and then the underlying median nerve with blunt dissection. This was transected longitudinally for about 3cm proximal to the wrist incision. The wound was then irrigated with easy flow of irrigant distally and proximally. The incision was closed with a single 4-0 Nylon suture. The wound was dressed with Xeroform, Gauze, Kerlix and Kit. The tourniquet was deflated with the initial dressing and held with some pressure. Blood flow returned easily to all digits with capillary refill less than 2 seconds. The patient tolerated the procedure well and was returned to the Same Day Surgery area in a stable condition suffering no known complication.
== END 2021-06-04 13:30 | disposition home or self-care (01) ==
LOC: SUR 10:04
PROVIDERS: PCP Family Medicine; Visit Provider Student in an Organized Health Care Education/Training Program
PROC: 01N54ZZ Release Median Nerve, Percutaneous Endoscopic Approach (ICD-10-PCS; CPT 29848; principal; 2021-06-04 12:00)
DX: G56.01 Carpal tunnel syndrome, right upper limb (principal)
CPT/HCPCS: 29848; J0690; J1885; J2001; J2704